=== PATIENT | female | born 1990 | race Caucasian/White ===

== ENCOUNTER 2020-03-01 03:01 | Emergency (ER) | payer SELFPAY ==
--- NOTE | 2020-03-01 03:28 | ER ---
Nurse's Notes [facility] Name: Alesia Teran Age: 30 yrs Sex: Female : 1990 Arrival Date: 03/01/2020 Time: 03:04 Bed 5 Private MD: Diagnosis: Insect allergy status;Cellulitis and acute lymphangitis of other parts of limb Presentation: 03/01 03:09 Chief complaint: Patient states: pt reports redness and swelling to the Right knee, sg states having pain and itching as well, denies N/V/D/Fever/Chills at this time for triage. Coronavirus screen: Client denies travel out of the [place] in the last 14 days. At this time, the client does not indicate any symptoms associated with coronavirus-19. Ebola Screen: Patient negative for fever greater than or equal to 101.5 degrees Fahrenheit, and additional compatible Ebola Virus Disease symptoms Patient denies exposure to infectious person. Patient denies travel to an Ebola-affected area in the 21 days before illness onset. No symptoms or risks identified at this time. Initial Sepsis Screen: Does the patient meet any 2 criteria? No. Patient's initial sepsis screen is negative. Does the patient have a suspected source of infection? No. Patient's initial sepsis screen is negative. Risk Assessment: Do you want to hurt yourself or someone else? Patient reports no desire to harm self or others. Onset of symptoms was March 01, 2020. Care prior to arrival: None. Mechanism of Injury: No Mechanism of Injury. Transition of care: patient was not received from another setting of care. 03:09 Method Of Arrival: Ambulatory sg 03:09 Acuity: MOISÉS 4 sg Triage Assessment: 03:15 Bite description: bite sustained to right pickard by an unknown animal, animal jd3 information: vaccination(s) is unknown. 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 - Social history:: Smoking status: Patient denies any tobacco usage or history of. - Family history:: not pertinent. Screenin:13 Abuse screen: Denies threats or abuse. Nutritional screening: No deficits noted. ea Tuberculosis screening: No symptoms or risk factors identified. Fall Risk None identified. Assessment: 03:11 General: Appears in no apparent distress. uncomfortable, Behavior is calm, cooperative, jd3 appropriate for age. Pain: Denies pain. Neuro: Level of Consciousness is awake, alert, obeys commands, Oriented to person, place, time, situation. Cardiovascular: Denies chest pain, Capillary refill < 3 seconds Patient's skin is warm and dry. Respiratory: Airway is patent Respiratory effort is even, unlabored, Respiratory pattern is regular, symmetrical, Denies cough, shortness of breath. GI: No signs and/or symptoms were reported involving the gastrointestinal system. : No signs and/or symptoms were reported regarding the genitourinary system. EENT: No signs and/or symptoms were reported regarding the EENT system. Derm: Skin is intact, Skin is dry, Skin is normal, Skin temperature is warm red circular area noted to the right pickard, tender to the touch. Musculoskeletal: Circulation, motion, and sensation intact. Range of motion: intact in all extremities. 03:40 Reassessment: Patient appears in no apparent distress at this time. Patient and/or jd3 family updated on plan of care and expected duration. Pain level reassessed. Patient is alert, oriented x 3, equal unlabored respirations, skin warm/dry/pink. pt reported understanding of discharge instructions. even and steady gait upon discharge. Vital Signs: 03:11 BP 130 / 90; Pulse 97; Resp 18; Temp 98.3; Pulse Ox 100% ; ea ED Course: 03:04 Patient arrived in ED. fj1 03:05 Eduin Elena MD is Attending Physician. [facility] 03:08 William Taavres, NED is Primary Nurse. jd3 03:08 Arm band placed on. sg 03:10 Triage completed. sg 03:13 Patient has correct armband on for positive identification. Bed in low position. Call ea light in reach. Side rails up X2. 03:35 Ice pack to injury. jd3 03:41 No provider procedures requiring assistance completed. Patient did not have IV access jd3 during this emergency room visit. Administered Medications: 03:33 Not Given (Patient Refused): Benadryl 50 mg PO once jd3 03:33 Drug: Motrin 600 mg Route: PO; jd3 03:42 Follow up: Response: Medication administered at discharge. jd3 03:33 Drug: Doxycycline 200 mg Route: PO; jd3 03:42 Follow up: Response: Medication administered at discharge. jd3 03:33 Drug: Bactrim (160 mg-800 mg (DS) 1 tablet Route: PO; jd3 03:42 Follow up: Response: Medication administered at discharge. jd3 Outcome: 03:28 Discharge ordered by MD. suh 03:41 Discharged to home ambulatory. jd3 03:41 Condition: stable 03:41 Discharge instructions given to patient, Instructed on discharge instructions, follow up and referral plans. medication usage, Demonstrated understanding of instructions, follow-up care, medications, Prescriptions given X 4. 03:42 Patient left the ED. jd3 Signatures: Brett Waller RN RN sg Anderson, Corey, MD MD cha Antunez, Elena RN William Metz ea, RN RN jd3 James, Frank fj1
--- NOTE | 2020-03-01 03:28 | EDPHYS ---
Physician Documentation [facility] Name: Alesia Teran Age: 30 yrs Sex: Female : 1990 Arrival Date: 03/01/2020 Time: 03:04 Bed 5 Private MD: ANGELES Physician Eduin Elena HPI: 03/01 03:22 This 30 yrs old Female presents to ER via Ambulatory with complaints of vikash Insect Bite. 03:22 The patient presents with pain, swelling, tenderness. The complaints affect the left vikash knee. Context: The problem was sustained outdoors, resulted from an unknown cause. Onset: The symptoms/episode began/occurred just prior to arrival. Modifying factors: The symptoms are alleviated by remaining still, the symptoms are aggravated by movement, bending knee. Associated signs and symptoms: The patient has no apparent associated signs or symptoms. Treatment prior to arrival includes: no previous treatment. Severity of symptoms: At their worst the symptoms were mild. The patient has not experienced similar symptoms in the past. 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 - Social history:: Smoking status: Patient denies any tobacco usage or history of. - Family history:: not pertinent. ROS: 03:22 Constitutional: Negative for fever, chills, and weight loss, Eyes: Negative for injury, vikash pain, redness, and discharge, ENT: Negative for injury, pain, and discharge, Neck: Negative for injury, pain, and swelling, Cardiovascular: Negative for chest pain, palpitations, and edema, Respiratory: Negative for shortness of breath, cough, wheezing, and pleuritic chest pain, Abdomen/GI: Negative for abdominal pain, nausea, vomiting, diarrhea, and constipation, Back: Negative for injury and pain, : Negative for injury, bleeding, discharge, and swelling, Neuro: Negative for headache, weakness, numbness, tingling, and seizure, Psych: Negative for depression, anxiety, suicide ideation, homicidal ideation, and hallucinations, Allergy/Immunology: Negative for hives, rash, and allergies, Endocrine: Negative for neck swelling, polydipsia, polyuria, polyphagia, and marked weight changes, Hematologic/Lymphatic: Negative for swollen nodes, abnormal bleeding, and unusual bruising. 03:22 MS/extremity: Positive for decreased range of motion, erythema, pain, swelling, tenderness, of the right knee. Exam: 03:22 Constitutional: This is a well developed, well nourished patient who is awake, alert, vikash and in no acute distress. Head/Face: Normocephalic, atraumatic. Eyes: Pupils equal round and reactive to light, extra-ocular motions intact. Lids and lashes normal. Conjunctiva and sclera are non-icteric and not injected. Cornea within normal limits. Periorbital areas with no swelling, redness, or edema. ENT: Nares patent. No nasal discharge, no septal abnormalities noted. Tympanic membranes are normal and external auditory canals are clear. Oropharynx with no redness, swelling, or masses, exudates, or evidence of obstruction, uvula midline. Mucous membranes moist. Neck: Trachea midline, no thyromegaly or masses palpated, and no cervical lymphadenopathy. Supple, full range of motion without nuchal rigidity, or vertebral point tenderness. No Meningismus. Chest/axilla: Normal chest wall appearance and motion. Nontender with no deformity. No lesions are appreciated. Cardiovascular: Regular rate and rhythm with a normal S1 and S2. No gallops, murmurs, or rubs. Normal PMI, no JVD. No pulse deficits. Respiratory: Lungs have equal breath sounds bilaterally, clear to auscultation and percussion. No rales, rhonchi or wheezes noted. No increased work of breathing, no retractions or nasal flaring. Abdomen/GI: Soft, non-tender, with normal bowel sounds. No distension or tympany. No guarding or rebound. No evidence of tenderness throughout. Back: No spinal tenderness. No costovertebral tenderness. Full range of motion. Skin: Warm, dry with normal turgor. Normal color with no rashes, no lesions, and no evidence of cellulitis. Neuro: Awake and alert, GCS 15, oriented to person, place, time, and situation. Cranial nerves II-XII grossly intact. Motor strength 5/5 in all extremities. Sensory grossly intact. Cerebellar exam normal. Normal gait. Psych: Awake, alert, with orientation to person, place and time. Behavior, mood, and affect are within normal limits. 03:22 Musculoskeletal/extremity: ROM: limited active range of motion, limited passive range of motion, Circulation is intact in all extremities. Sensation intact. Compartment Syndrome exam of affected extremity: is normal. Weight bearing: can bear weight with assistance only, limping, DVT Exam: No signs of deep vein thrombosis. negative Homans' sign noted on exam, no appreciated bluish discoloration, pain, swelling, tenderness, of the right leg, of the right knee, erythema. Vital Signs: 03:11 BP 130 / 90; Pulse 97; Resp 18; Temp 98.3; Pulse Ox 100% ; ea MDM: 03:05 Patient medically screened. [facility] 03:25 Data reviewed: vital signs, nurses notes. Data interpreted: lunchroom monitor: rate is 97 vikash beats/min, rhythm is regular, Pulse oximetry: is not applicable for this patient encounter. on room air is 100 %. Counseling: I had a detailed discussion with the patient and/or guardian regarding: the historical points, exam findings, and any diagnostic results supporting the discharge/admit diagnosis, the need for outpatient follow up, for definitive care, a family practitioner. ED course: pt stable, problem explained. 03/01 03:21 Order name: Ice pack; Complete Time: 03:33 [facility] Administered Medications: 03:33 Not Given (Patient Refused): Benadryl 50 mg PO once jd3 03:33 Drug: Motrin 600 mg Route: PO; jd3 03:42 Follow up: Response: Medication administered at discharge. jd3 03:33 Drug: Doxycycline 200 mg Route: PO; jd3 03:42 Follow up: Response: Medication administered at discharge. jd3 03:33 Drug: Bactrim (160 mg-800 mg (DS) 1 tablet Route: PO; jd3 03:42 Follow up: Response: Medication administered at discharge. jd3 Disposition: 03/01/20 03:28 Discharged to Home. Impression: Insect allergy status, Cellulitis and acute lymphangitis of other parts of limb. - Condition is Stable. - Discharge Instructions: Insect Bite, [id number], Insect Bite, Cellulitis, Adult, [id number]. - Prescriptions for Benadryl 25 mg Oral Capsule - take 1 capsule by ORAL route every 6 hours As needed; 30 tablet. Ibuprofen 600 mg Oral Tablet - take 1 tablet by ORAL route every 6 hours As needed take with food; 20 tablet. Doxycycline Hyclate 100 mg Oral Tablet - take 1 tablet by ORAL route every 12 hours; 20 tablet. Bactrim DS 800- 160 mg Oral Tablet - take 1 tablet by ORAL route every 12 hours for 10 days; 20 tablet. - Medication Reconciliation Form, Thank You Letter, Antibiotic Education, Prescription Opioid Use form. - Follow up: Private Physician; When: 2 - 3 days; Reason: Recheck today's complaints, Continuance of care, Re-evaluation by your physician. - Problem is new. - Symptoms have improved. Signatures: Brett Waller RN RN Eduin Liu MD MD cha Davies, Jonathon, RN RN jd3 Corrections: (The following items were deleted from the chart) 03:42 03:28 03/01/2020 03:28 Discharged to Home. Impression: Insect allergy status; jd3 Cellulitis and acute lymphangitis of other parts of limb. Condition is Stable. Forms are Medication Reconciliation Form, Thank You Letter, Antibiotic Education, Prescription Opioid Use. Follow up: Private Physician; When: 2 - 3 days; Reason: Recheck today's complaints, Continuance of care, Re-evaluation by your physician. Problem is new. Symptoms have improved. vikash
[2020-03-01] MEDS ORDERED: DIPHENHYDRAMINE 25 MG TAB/CAP ONE (03:36)
[2020-03-01] MEDS ORDERED: IBUPROFEN 200 MG TAB PO ONE (03:37)
[2020-03-01] MEDS ORDERED: IBUPROFEN 400 MG TAB ONE (03:37)
[2020-03-01] MEDS ORDERED: DOXYCYCLINE 100 MG CAP PO ONE (03:37)
[2020-03-01] MEDS ORDERED: SMZ./TMP. 800/160 MG TABLET ONE (03:37)
[2020-03-01 04:36] VITALS: BP 130/90; TEMP 98.3; O2SAT 100
== END 2020-03-01 03:42 | disposition home or self-care (01) ==
LOC: ER 03:01
DX: L03.116 Cellulitis of left lower limb (principal); L03.126 Acute lymphangitis of left lower limb; Z91.038 Other insect allergy status
CPT/HCPCS: 99283